=== PATIENT | male | born 1995 | race Caucasian/White ===

== ENCOUNTER → 2022-03-05 | Outpatient (CLI) | payer BC, OTHER ==
--- NOTE | 2022-03-06 05:51 | MR ---
EXAMINATION TYPE: MR shoulder LT wo con DATE OF EXAM: 03/05/2022 COMPARISON: None HISTORY: Left Shoulder Pain Multiplanar multiecho imaging of the left shoulder without contrast. The subscapularis tendon is intact. Biceps tendon is intact. There is small shoulder joint effusion. The glenoid barry appear intact. The supraspinatus tendon appears intact. No retraction. The AC joint is intact. The infraspinatus ten don is intact. No evidence of a fracture. IMPRESSION: No evidence of a rotator cuff tear. Small shoulder joint effusion suggestive of minimal synovitis.
== END | disposition home or self-care (01) ==
LOC: RADMRIMAIN 19:08
PROVIDERS: ATTEND Orthopaedic Surgery
DX: M25.412 Effusion, left shoulder (principal)

== ENCOUNTER → 2022-04-14 | Outpatient (CLI) | payer BC, OTHER ==
[2022-04-14 16:05] LABS: Basophils # (A) 0.01 X 10*3/uL (0.00-0.10); Basophils % (A) 0.2 %; Eosinophils # (A) 0.47 X 10*3/uL (0.04-0.35); Eosinophils % (A) 9.3 %; HCT 43.8 % (39.6-50.0); HGB 14.3 g/dL (13.0-17.0); Immature Grans, Automated 0.2 %; Lymphocytes % (A) 29.6 %; MCH 27.8 pg (27.0-32.0); MCHC 32.6 g/dL (32.0-37.0); MCV 85.2 fL (80.0-97.0); Mean Platelet Volume 9.7 fL (9.5-12.2); Monocytes # (A) 0.52 X 10*3/uL (0.20-1.00); Monocytes % (A) 10.3 %; NRBC Per 100 WBC 0 /100 WBCS (0.0-0.0); Neutrophils # (A) 2.55 X 10*3/uL (1.80-7.70); Neutrophils % (A) 50.4 %; Platelet Count 327 X 10*3/uL (140-440); RBC 5.14 X 10*6/uL (4.40-5.60); RDW 12.4 % (11.5-14.5); WBC 5.06 X 10*3/uL (4.50-10.00)
[2022-04-14 16:13] LABS: Anion Gap 10.8 mmol/L (10.00-18.00); Carbon Dioxide 24.1 mmol/L (20.0-27.5); Potassium 4.1 mmol/L (3.5-5.5)
== END | disposition home or self-care (01) ==
LOC: LABPAT 10:59
PROVIDERS: ATTEND Orthopaedic Surgery
DX: Z01.812 Encounter for preprocedural laboratory examination (principal); M75.42 Impingement syndrome of left shoulder
CPT/HCPCS: 80051; 85025

== ENCOUNTER 2022-04-19 09:26 | Day surgery (SDC) | payer BC, OTHER ==
[2022-04-17 11:06] VITALS: BMI 26.4
--- NOTE | 2022-04-18 17:49 | HP ---
HISTORY AND PHYSICAL REASON FOR ADMISSION: Surgery scheduled for 04/19/2022 HISTORY OF PRESENT ILLNESS: Viral Malone is a 26-year-old gentleman seen with progressive left shoulder pain. We discussed options for treatment. He elected to proceed with left shoulder arthroscopy. Consent obtained. PAST MEDICAL HISTORY: Noncontributory. PAST SURGICAL HISTORY: Wrist surgery. MEDICATIONS: Multivitamins, Motrin. ALLERGIES: None. SOCIAL HISTORY: Denies tobacco use. PHYSICAL EVALUATION OF THE LEFT SHOULDER: Flexion is 140 degrees, abduction is 130 degrees, external rotation is 50 degrees with pain and weakness. Tenderness along the anterolateral acromion rotator cuff insertion. Impingement positive at 90. Drop-arm sign is positive. Distal neurovascular exam is intact. RADIOGRAPHS: Radiographs of the left shoulder revealed a type 2 acromion along with cystic changes of the tuberosity. MRI left shoulder revealed an effusion, synovitis. IMPRESSION: Left shoulder impingement with rotator cuff tear versus labral tear. PLAN: Left shoulder arthroscopy with subacromial decompression, possible arthroscopic rotator cuff repair, versus labral repair and debridement. Surgery is scheduled for 04/19/2022. MMODL / IJN: [id number] /
[~2022-04-19 09:26] MED LIST: DEXAMETHASONE SOD PHOSPHATE 4 MG/ML 1 ML VIAL IV ONE; HYDROmorphone 0.5 MG/0.5 ML SYRINGE IVP PRN; LACTATED RINGERS 1,000 ML IV SCH; LIDOCAINE 1% (10MG/ML) FOR IV START INTRADERMA PRN; MIDAZOLAM 2 MG/2 ML VIAL IV PRN; ONDANSETRON 4 MG/2 ML VIAL IVP ONE
[2022-04-19] MEDS ORDERED: fentaNYL (PF) 50 MCG/ML 2 ML AMP ONE (11:24)
[2022-04-19] MEDS ORDERED: SUCCINYLCHOLINE CHLORIDE 100 MG/5 ML SYR IV ONE (11:24)
[2022-04-19] MEDS ORDERED: LIDOCAINE 2% INJ 20 MG/ML (2 ML VIAL) ONE (11:24)
[2022-04-19] MEDS ORDERED: ROPIVACAINE 5 MG/ML 30 ML VIAL ONE (11:24)
[2022-04-19] MEDS ORDERED: PROPOFOL 10 MG/ML 20 ML VIAL IV ONE (11:24)
[2022-04-19] MEDS ORDERED: MIDAZOLAM 2 MG/2 ML VIAL ONE (11:24)
[2022-04-19] MEDS ORDERED: HYDROmorphone (PF) 1 MG/ML ONE (11:24)
[2022-04-19] MEDS ORDERED: DEXAMETHASONE SOD PHOSPHATE 4 MG/ML 1 ML VIAL ONE (11:24)
--- NOTE | 2022-04-19 12:50 | P.OP ---
Date of Procedure: 04/19/22 Preoperative Diagnosis: Left shoulder impingement Postoperative Diagnosis: 1. Left shoulder rotator cuff tear 2. Left shoulder impingement Procedure(s) Performed: 1. Left shoulder arthroscopic rotator cuff repair 2. Left shoulder arthroscopic subacromial decompression Implants: 14.75 Arthrex a lock anchor Anesthesia: GETA, regional (Interscalene block) Surgeon: Bennie Ku [employer] Operator #1: Jefferson Arzate Estimated Blood Loss (ml): 7 Pathology: none sent Condition: stable Disposition: PACU Indications for Procedure: 26-year-old patient seen with progressive left shoulder pain. After treatment options were discussed, he elected to proceed with arthroscopy. Operative Findings: See description of procedure Description of Procedure: Patient underwent an interscalene block by department of anesthesia. The patient was then taken to the operative suite. The patient underwent a general anesthetic by the department of anesthesia. The patient was placed into a lateral position and secured. There was appropriate padding of the bony prominence. Left shoulder was then prepped and draped in normal sterile orthopedic fashion. We placed the extremity in 10 pounds of longitudinal traction. A posterior incision was now made for a posterior working portal site. The trocar and cannula were inserted into the glenohumeral joint. Arthroscopy was initiated. Spinal needle was now inserted anteriorly, to ascertain the anterior working portal site. An incision was now made in that area, a trocar was inserted followed by a probe. The labrum was probed and found to be stable. The biceps tendon was stable. There was no chondromalacia present. Instruments were now removed from the glenohumeral joint. Utilizing the posterior working portal site, the trocar and cannula were inserted into the subacromial space. Arthroscopy initiated. I made an incision 2 fingerbreadths lateral to the acromion. I introduced my trocar followed by my ArthroCare ablator. I now began ablating thick subacromial bursal tissue, which exposed the undersurface of the anterior acromion. There was diminished subacromial space. There was a very prominent anterior acromion. A motorized bur was introduced and a subacromial decompression was performed. I also excised some osteophytes off the inferior aspect of the distal clavicle. The AC joint was visualized and noted to be mildly arthritic, I did not think enough toward a Amaris procedure. I turned my attention to the rotator cuff tendon. There was substantial tearing along the mid area of the distal supraspinatus. Upon probing that area and noted a full-thickness perforation to be present. I debrided the margins getting down to stable tendon tissue. The defect measured approximately 11.5 cm and was freely mobile over the footprint. I now abraded the footprint with a motorized bur. With the assistance of Fuad WISEMAN I passed 3 everted mattress sutures through good bites of rotator cuff tendon. I now punched to holes in the footprint area for insertion of an anchor. All 6 limbs of suture were passed through the eyelet of a 4.75 Arthrex swivel lock anchor. I now placed through the eyelet into our pre-punched hole. I held the eyelet in position while Fuad WISEMAN tensioned all 6 suture limbs and deployed the anchor with good fixation noted. All residual suture limbs were now clipped. We had good compression of the tendon along the entire footprint. Instruments now removed from the portal sites. All portal sites were approximated with nylon suture. Sterile dressings were applied followed by a shoulder sling. Jefferson WISEMAN assisted in this case. The patient was awakened, transferred to a bed, and taken to recovery in stable condition.
[2022-04-19] MEDS ORDERED: MEPERIDINE 50 MG/ML SYRINGE IVP ONE (12:56)
[2022-04-19 13:10] VITALS: TEMP 96.9
[2022-04-19 14:10] VITALS: RESP 17
[2022-04-19 14:23] VITALS: BP 132/82; PULSE 65
--- NOTE | 2022-04-19 18:24 | P.ANPRN ---
Procedure Note - Anesthesia - Nerve Block Performed Left Interscalene Single Time Out Performed: Yes Date of Procedure: 04/19/22 Procedure Start Time: 10:38 Procedure Stop Time: 10:41 Location of Patient: PreOp Indication: Acute Post-Operative Pain, Requested by Surgeon Sedation Type: Sedate with meaningful contact maintained Position: Supine Needle Types: Pajunk Needle Gauge: 21 Ultrasound used to visualize needle placement: Yes Ultrasound used to observe medication spread: Yes Blood Aspirated: No Pain Paresthesia on Injection Noted: No Resistance on Injection: Normal Image Stored and Saved: Yes Events: Uneventful and Well Tolerated (ropi .5% 25cc plus dexamethasone 4mg)
== END 2022-04-19 15:00 | disposition home or self-care (01) ==
LOC: OR 09:26
PROVIDERS: ATTEND Orthopaedic Surgery
DX: M75.42 Impingement syndrome of left shoulder (principal); M75.122 Complete rotator cuff tear or rupture of left shoulder, not specified as traumatic; M19.012 Primary osteoarthritis, left shoulder; M25.712 Osteophyte, left shoulder; G89.18 Other acute postprocedural pain; K21.9 Gastro-esophageal reflux disease without esophagitis; Z79.51 Long term (current) use of inhaled steroids; Z79.899 Other long term (current) drug therapy
CPT/HCPCS: 64415; 76942; 29827; 29826; C1713; J2250; J1100; J2175; J0690; J2405; J3010; J1170; J2795; J0330; J2704; J2001

== ENCOUNTER 2023-12-25 07:30 | Day surgery (SDC) | payer BC, OTHER ==
[2023-12-23 16:01] VITALS: BMI 27.4
[~2023-12-25 07:30] MED LIST changes: -DEXAMETHASONE SOD PHOSPHATE 4 MG/ML 1 ML VIAL IV ONE; -HYDROmorphone 0.5 MG/0.5 ML SYRINGE IVP PRN; -LACTATED RINGERS 1,000 ML IV SCH; -MIDAZOLAM 2 MG/2 ML VIAL IV PRN; -ONDANSETRON 4 MG/2 ML VIAL IVP ONE; +ONDANSETRON 4 MG/2 ML VIAL IVP PRN
[2023-12-25] MEDS: LACTATED RINGERS 1,000 ML IV SCH (07:50)
--- NOTE | 2023-12-25 08:03 | P.GSHP ---
History of Present Illness H&P Date: 12/25/23 CHIEF COMPLAINT: Esophageal stricture HISTORY OF PRESENT ILLNESS: The patient is a 28-year-old male who presents reports dysphagia. Upper endoscopy was offered for further evaluation and management. PAST MEDICAL HISTORY: Please see list. PAST SURGICAL HISTORY: Please see list. MEDICATIONS: Please see list. ALLERGIES: Please see list. SOCIAL HISTORY: No illicit drug use FAMILY HISTORY: No reports of Crohn disease or ulcerative colitis. REVIEW OF ORGAN SYSTEMS: CONSTITUTIONAL: No reports of fevers or chills. GI: Denies any blood in stools or constipation. PHYSICAL EXAM: VITAL SIGNS: Stable GENERAL: Well-developed and pleasant in no acute distress. HEENT: No scleral icterus. Extraocular movements grossly intact. Moist buccal mucosa. NECK: Supple without lymphadenopathy. CHEST: Unlabored respirations. Equal bilateral excursions. CARDIOVASCULAR: Regular rate and rhythm. Distal 2+ pulses. ABDOMEN: Soft, nondistended. MUSCULOSKELETAL: No clubbing, cyanosis, or edema. ASSESSMENT: 1. Esophageal stricture PLAN: 1. Recommend proceeding with an upper endoscopy with rigid dilators. Past Medical History Past Medical History: GERD/Reflux Additional Past Medical History / Comment(s): esophageal spasms History of Any Multi-Drug Resistant Organisms: None Reported Additional Past Surgical History / Comment(s): lt rot cuff surgery,left wrist c yst removed Past Anesthesia/Blood Transfusion Reactions: No Reported Reaction Additional Past Anesthesia/Blood Transfusion Reaction / Comment(s): no hx of blood transfusion Smoking Status: Former smoker - Past Family History Mother Family Medical History: No Reported History Medications and Allergies Home Medications Medication Instructions Recorded Confirmed Type Cetirizine HCl [Zyrtec] 10 mg PO DAILY 04/17/22 12/25/23 History Fluticasone Nasal [place] [Flonase 2 spray EA NOSTRIL DAILY PRN 04/17/22 12/25/23 History Nasal [place]] Famotidine [Pepcid] 40 mg PO DAILY 12/23/23 12/25/23 History Allergies Allergy/AdvReac Type Severity Reaction Status Date / Time No Known Allergies Allergy Verified 12/23/23 15:37 Surgical - Exam Vital Signs Temp Pulse Resp BP Pulse Ox 97.1 F L 77 18 136/80 99 12/25/23 07:51 12/25/23 07:51 12/25/23 07:51 12/25/23 07:51 12/25/23 07:51
[2023-12-25 08:04] VITALS: TEMP 97.1
[2023-12-25] MEDS ORDERED: LIDOCAINE 1% INJ 10MG/ML (20 ML MDV) ONE (08:34)
[2023-12-25] MEDS ORDERED: PROPOFOL 10 MG/ML 20 ML VIAL IV ONE (08:34)
[2023-12-25 09:17] VITALS: BP 111/75; PULSE 71; RESP 16
--- NOTE | 2023-12-25 09:32 | P.PCN ---
Date of Procedure: 12/25/23 Description of Procedure: PREOPERATIVE DIAGNOSIS: Gastroesophageal reflux disease Dysphagia POSTOPERATIVE DIAGNOSIS: Esophageal stricture Gastroesophageal reflux disease Gastritis OPERATION: Esophagogastroduodenoscopy with rigid dilator over the guidewire 57 Fr with dilation Esophagogastroduodenoscopy with cold forceps biopsies esophagus, duodenum and stomach/antrum SURGEON: Yazmin Cantu MD ANESTHESIA: MAC. INDICATIONS: The patient is a 28-year-old male who presents with a history of eldon roesophageal reflux disease with dysphagia. Benefits and risks of the procedure were described. Informed consent was obtained. DESCRIPTION: The patient was brought into the endoscopy suite and laid in the left lateral decubitus position. After a timeout was confirmed, the procedure was initiated. An Olympus gastroscope was passed into the posterior oropharynx. The scope was passed down to the distal esophagus. Next using an Malaysian rigid dilator, a guidewire was placed through the gastroscope. Next the scope was withdrawn. A 57-Qatari rigid Malaysian dilator was passed carefully along the posterior oropharynx to 50 cm and left in place for 2-3 minutes stretch. The dilator was withdrawn including the guidewire. The scope was reentered along the posterior oropharynx with no findings of full- thickness tear of the esophagus. Additional findings below. Within the stomach, acute gastritis was identified along the body of the stomach with cold forceps biopsies obtained including of the esophagus and duodenum. The lower esophageal valve was evaluated with Hill grade 1 lower esophageal valve. LA grade B erosive esophagitis was identified. No full-thickness injury was encountered. The GI tract was desufflated. The patient tolerated the procedure well. FINDINGS: Upper esophageal stenosis dilated 57-Qatari rigid dilator Diaphragmatic hiatus at 40 cm from the incisors Squamocolumnar junction 40 cm from the incisors. Gastritis along the gastric body and fundus cold forceps biopsies obtained Duodenum with biopsies obtained LA grade B erosive esophagitis, biopsies obtained Hill grade 1 lower esophageal valve. RECOMMENDATIONS: Omeprazole 40 mg daily Upper endoscopy as needed Plan - Discharge Summary Discharge Rx Participant: No New Discharge Prescriptions: New Omeprazole [PriLOSEC] 40 mg PO DAILY #14 cap Continue Fluticasone Nasal [place] [Flonase Nasal [place]] 2 spray EA NOSTRIL DAILY PRN PRN Reason: allergies Cetirizine HCl [Zyrtec] 10 mg PO DAILY Discontinued Famotidine [Pepcid] 40 mg PO DAILY Discharge Medication List Cetirizine HCl [Zyrtec] 10 mg PO DAILY 04/17/22 [History] Fluticasone Nasal [place] [Flonase Nasal [place]] 2 spray EA NOSTRIL DAILY PRN 04/17/22 [History] Omeprazole [PriLOSEC] 40 mg PO DAILY #14 cap 12/25/23 [Rx] Follow up Appointment(s)/Referral(s): Yazmin Cantu MD [STAFF PHYSICIAN] - 01/14/24 3:30 pm Patient Instructions/Handouts: Esophageal Dilation (DC) Discharge Disposition: HOME SELF-CARE
== END 2023-12-25 10:18 | disposition home or self-care (01) ==
LOC: ORWHC2ENDO 07:30
PROVIDERS: ATTEND Surgery Plastic and Reconstructive Surgery
DX: K29.50 Unspecified chronic gastritis without bleeding (principal); K21.00 Gastro-esophageal reflux disease with esophagitis, without bleeding; K22.2 Esophageal obstruction; Z87.891 Personal history of nicotine dependence; Z79.899 Other long term (current) drug therapy
CPT/HCPCS: 88305; 43239; 43248; J2001; J2704